=== PATIENT | female | born 1940 | race Caucasian/White ===

== ENCOUNTER 2017-10-05 06:09 | Inpatient (IN) | payer MEDICARE, BC ==
[~2017-10-05] VITALS: Ht 160 cm; Wt 99.0 kg
[~2017-10-05 06:09] MED LIST: ALEN70TA48 PO; ASPI81TA46 PO; ATOR20TA PO; CANA300T PO; CHOL10008 PO; GLIM1TAB46 PO; METF-436 PO; MULT-38 PO; PIOG15TA8 PO; VALS160T2 PO
[2017-10-05] MEDS ORDERED: normal saline 1000ML IV soln IVB ONE ×2 (06:35→08:35)
[2017-10-05] MEDS ORDERED: tranexamic acid inj. 100 MG in normal saline 100ml IV soln 99 ML IV ONE (06:55)
[2017-10-05 07:11] LABS: CLARITY,URINE SLIGHTLY CLOUDY (Clear); COLOR,URINE YELLOW (Yellow); GLUCOSE, URINE >=1000 mg/dl (Neg); KETONES,URINE NEGATIVE (Neg); LEUKOCYTE ESTERASE ,URINE SMALL (Neg); NITRITES, URINE NEGATIVE (Neg); OCCULT BLOOD,URINE NEGATIVE (Neg); PH,URINE 7.5 (4.8-8.0); PROTEIN,URINE 100 mg/dl (Neg)
[2017-10-05 07:12] LABS: UA COLLECTION TYPE NON-SPECIFIED
[2017-10-05 07:18] LABS: BACTERIA,URINE FEW /HPF (Neg); MUCUS STRANDS NONE SEEN /LPF (Neg); RBC,URINE NONE SEEN /HPF (0-2); RENAL CELLS, URINE FEW /HPF; SQUAMOUS EPITHELIAL CELL,UR MODERATE /LPF (FEW); WBC CLUMPS,URINE FEW /HPF (NEGATIVE); WBC,URINE 20-30 /HPF (0-4)
[2017-10-05 07:18] LABS: BASOPHILS % (AUTO) 0.6 % (0-1); EOSINOPHILS # (AUTO) 0.2 X10'3 (0-0.9); HEMATOCRIT 42.3 % (35.0-45.0); HEMOGLOBIN 13.9 g/dl (12.0-16.0); LYMPHOCYTES # (AUTO) 1.7 X10'3 (1.1-4.8); LYMPHOCYTES % (AUTO) 22.3 % (21-51); MEAN CORPUSCULAR HEMOGLOBIN 30.4 PG (27.0-31.0); MEAN CORPUSCULAR HGB CONC 32.9 % (33.0-36.5); MEAN CORPUSCULAR VOLUME 92.4 FL (78-98); MEAN PLATELET VOLUME 8.6 FL (7.4-10.4); MONOCYTES # (AUTO) 1.1 X10'3 (0-0.9); MONOCYTES % (AUTO) 14.5 % (2-12); NEUTROPHILS # (AUTO) 4.4 X10'3 (1.8-7.7); NEUTROPHILS % (AUTO) 59.6 % (42-75); PLATELET COUNT 237 X10'3 (140-440); RED BLOOD COUNT 4.58 X10'6 (4.20-5.60); RED CELL DISTRIBUTION WIDTH 14.3 % (11.5-14.5); WHITE BLOOD COUNT 7.4 X10'3 (4.5-11.0)
[2017-10-05 07:27] LABS: PROTHROMBIN TIME 10.1 SECONDS (9.0-12.0)
[2017-10-05 07:29] LABS: ALANINE AMINOTRANSFERASE 19 U/L (12-78); ALBUMIN 3.2 G/DL (3.4-5.0); ALBUMIN/GLOBULIN RATIO 0.7 (1.1-1.5); ALKALINE PHOSPHATASE 98 IU/L (46-116); ANION GAP 6 (8-16); ASPARTATE AMINO TRANSFERASE 16 U/L (10-37); BILIRUBIN,TOTAL 0.8 MG/DL (0.1-1.0); BLOOD UREA NITROGEN 38 MG/DL (7-18); BUN/CREATININE RATIO 34.9 (6.6-38.0); CALCIUM 9.4 MG/DL (8.5-10.1); CHLORIDE 99 MMOL/L (99-107); CREATININE 1.09 MG/DL (0.40-0.90); GLUCOSE 151 MG/DL (70-104); POTASSIUM 4.3 MMOL/L (3.5-5.1); SODIUM 134 MMOL/L (135-145); TOTAL CARBON DIOXIDE 29.5 MMOL/L (24-32); TOTAL PROTEIN 7.7 G/DL (6.4-8.2); eGFR 49 ML/MIN
[2017-10-05] MEDS ORDERED: CefTRIAXone 2gm/D5W 50ml 50 ML IV ONE (07:35)
[2017-10-05] MEDS ORDERED: acetaminophen 325mg tablet PO PRN ×2 (08:25)
[2017-10-05] MEDS ORDERED: dextrose ORAL solution 15 GM/59 ML bottle PO PRN ×2 (08:25)
[2017-10-05] MEDS ORDERED: potassium Cl 40MEQ/NS 500ml 500 ML IV PRN ×2 (08:25)
[2017-10-05] MEDS ORDERED: dextrose 50%-water 50ml dispensing syringe IV PRN ×2 (08:25)
[2017-10-05] MEDS ORDERED: magnesium 4gm in 100ml NS 100 ML IV PRN (08:25)
[2017-10-05] MEDS ORDERED: ondansetron/PF 4mg/2ml inj IV PRN (08:25)
[2017-10-05] MEDS ORDERED: magnesium 1gm/100ml D5W IVPB 100 ML IV PRN (08:25)
[2017-10-05] MEDS ORDERED: HYDROcodone/acetaminophen 5mg/325mg tablet PO PRN (08:25)
[2017-10-05] MEDS ORDERED: magnesium Cl slow-release 64mg tablet PO PRN (08:25)
[2017-10-05] MEDS ORDERED: MESSAGE TO PHARMACY PO ONE (08:25)
[2017-10-05] MEDS ORDERED: HYDROcodone/acetaminophen 10/325mg tab PO PRN (08:25)
[2017-10-05] MEDS ORDERED: potassium Cl 20 mEq SR tablet PO PRN ×2 (08:25)
[2017-10-05] MEDS ORDERED: insulin Lispro (HumaLOG) vial - multi-dose SQ SCH (08:25)
[2017-10-05] MEDS ORDERED: glucagon, human recombinant 1mg kit SUBCUT PRN (08:25)
[2017-10-05 08:50] LABS: HEMOGLOBIN A1C 7.1 % (4.5-6.2)
[2017-10-05] MEDS ORDERED: FURO-150 PO (08:52)
[2017-10-05] MEDS ORDERED: BISO1TAB7 PO (08:52)
[2017-10-05] MEDS ORDERED: FERR325T28 PO (08:52)
[2017-10-05] MEDS ORDERED: AMLO-356 PO (08:52)
[2017-10-05] MEDS ORDERED: heparin sodium, porcine/PF 100unit/ml 5ML syringe ONE (08:56)
[2017-10-05] MEDS: normal saline 1000ml 1,000 ML IV SCH ×2 (11:56→23:31)
[2017-10-05] MEDS: ciprofloxacin 250mg tablet PO SCH ×2 (12:11→21:13)
[2017-10-05 12:16] VITALS: BP 171/77
[2017-10-05] MEDS ORDERED: PEG 3350/Na sulf,bicarb,Cl/KCl oral sol 4 liter bottle PO ONE (13:55)
[2017-10-05 19:00] VITALS: BP_SYST 149; BP_SYST 171; BP_SYST 181; BP_DIAS 70; BP_DIAS 75; BP_DIAS 77
[2017-10-05] MEDS: docusate sod 100mg capsule PO SCH (20:00)
[2017-10-05] MEDS: insulin glargine (Lantus) pen - multi-dose SQ SCH (21:00)
[2017-10-06] VITALS (10 sets, daily range): BP systolic 121–199; BP diastolic 65–114
[2017-10-06 05:01] LABS: BASOPHILS % (AUTO) 0.3 % (0-1); EOSINOPHILS # (AUTO) 0.3 X10'3 (0-0.9); EOSINOPHILS % (AUTO) 3.6 % (0-6); HEMATOCRIT 37.4 % (35.0-45.0); HEMOGLOBIN 12.7 g/dl (12.0-16.0); LYMPHOCYTES # (AUTO) 1.3 X10'3 (1.1-4.8); MEAN CORPUSCULAR HEMOGLOBIN 31.4 PG (27.0-31.0); MEAN CORPUSCULAR VOLUME 92.4 FL (78-98); MEAN PLATELET VOLUME 8.6 FL (7.4-10.4); MONOCYTES # (AUTO) 0.9 X10'3 (0-0.9); MONOCYTES % (AUTO) 12.6 % (2-12); NEUTROPHILS # (AUTO) 4.7 X10'3 (1.8-7.7); NEUTROPHILS % (AUTO) 65.5 % (42-75); PLATELET COUNT 232 X10'3 (140-440); RED BLOOD COUNT 4.05 X10'6 (4.20-5.60); RED CELL DISTRIBUTION WIDTH 14.4 % (11.5-14.5); WHITE BLOOD COUNT 7.2 X10'3 (4.5-11.0)
[2017-10-06 05:20] LABS: ANION GAP 7 (8-16); BLOOD UREA NITROGEN 16 MG/DL (7-18); BUN/CREATININE RATIO 20.8 (6.6-38.0); CALCIUM 8.8 MG/DL (8.5-10.1); CHLORIDE 103 MMOL/L (99-107); CREATININE 0.77 MG/DL (0.40-0.90); GLUCOSE 107 MG/DL (70-104); POTASSIUM 3.8 MMOL/L (3.5-5.1); SODIUM 139 MMOL/L (135-145); TOTAL CARBON DIOXIDE 28.9 MMOL/L (24-32); eGFR 73 ML/MIN
[2017-10-06] MEDS: K and/or MAG REPLACEMENT MC SCH (08:00)
[2017-10-06] MEDS: docusate sod 100mg capsule PO SCH ×2 (08:47→20:38)
[2017-10-06] MEDS: ciprofloxacin 250mg tablet PO SCH ×2 (08:47→22:31)
[2017-10-06] MEDS ORDERED: MIDAZolam 5mg/5ml vial ONE (11:18)
[2017-10-06] MEDS ORDERED: fentaNYL/PF 50MCG/1 ML 2ML syringe ONE (11:18)
[2017-10-06] MEDS: normal saline 1000ml 1,000 ML IV SCH (16:59)
[2017-10-06] MEDS ORDERED: HYDROchlorothiazide 12.5mg capsule PO ONE (20:35)
[2017-10-06] MEDS ORDERED: atenolol 50mg tablet PO ONE (20:35)
[2017-10-06] MEDS: metFORMIN 500mg tablet PO SCH (20:40)
[2017-10-06] MEDS: atorvastatin 20mg tablet PO SCH (20:40)
[2017-10-06] MEDS: insulin glargine (Lantus) pen - multi-dose SQ SCH (21:00)
[2017-10-07] MEDS: normal saline 1000ml 1,000 ML IV SCH ×2 (01:42→05:51)
[2017-10-07 05:41] LABS: BASOPHILS % (AUTO) 0.5 % (0-1); EOSINOPHILS # (AUTO) 0.3 X10'3 (0-0.9); EOSINOPHILS % (AUTO) 5.3 % (0-6); HEMATOCRIT 38.5 % (35.0-45.0); HEMOGLOBIN 12.7 g/dl (12.0-16.0); LYMPHOCYTES # (AUTO) 1.3 X10'3 (1.1-4.8); LYMPHOCYTES % (AUTO) 20.2 % (21-51); MEAN CORPUSCULAR HEMOGLOBIN 30.5 PG (27.0-31.0); MEAN CORPUSCULAR HGB CONC 32.8 % (33.0-36.5); MEAN PLATELET VOLUME 8.8 FL (7.4-10.4); MONOCYTES # (AUTO) 0.8 X10'3 (0-0.9); NEUTROPHILS # (AUTO) 4.1 X10'3 (1.8-7.7); PLATELET COUNT 211 X10'3 (140-440); RED BLOOD COUNT 4.15 X10'6 (4.20-5.60); RED CELL DISTRIBUTION WIDTH 13.8 % (11.5-14.5); WHITE BLOOD COUNT 6.5 X10'3 (4.5-11.0)
[2017-10-07 05:50] LABS: ANION GAP 8 (8-16); BLOOD UREA NITROGEN 8 MG/DL (7-18); BUN/CREATININE RATIO 10.7 (6.6-38.0); CALCIUM 9.3 MG/DL (8.5-10.1); CHLORIDE 102 MMOL/L (99-107); CREATININE 0.75 MG/DL (0.40-0.90); GLUCOSE 104 MG/DL (70-104); MAGNESIUM 1.9 MG/DL (1.5-2.4); POTASSIUM 3.7 MMOL/L (3.5-5.1); SODIUM 138 MMOL/L (135-145); eGFR 75 ML/MIN
[2017-10-07] MEDS ORDERED: atenolol 50mg tablet PO SCH (06:41)
[2017-10-07] MEDS ORDERED: HYDROchlorothiazide 12.5mg capsule PO SCH (06:41)
[2017-10-07] MEDS: HYDROchlorothiazide 12.5mg capsule PO SCH (06:48)
[2017-10-07] MEDS: metFORMIN 500mg tablet PO SCH ×2 (06:49→19:47)
[2017-10-07] MEDS: docusate sod 100mg capsule PO SCH ×2 (06:49→19:47)
[2017-10-07] MEDS: atenolol 50mg tablet PO SCH (06:49)
[2017-10-07] MEDS: ciprofloxacin 250mg tablet PO SCH ×2 (06:50→22:15)
[2017-10-07] MEDS: multivitamins, therapeutics tablet PO SCH (06:51)
[2017-10-07] MEDS: K and/or MAG REPLACEMENT MC SCH (06:55)
[2017-10-07 06:57] VITALS: BP 180/83
[2017-10-07] MEDS ORDERED: glimepiride 1 MG tablet PO SCH (08:00)
[2017-10-07 08:30] VITALS: BP_SYST 180; BP_SYST 199; BP_DIAS 83; BP_DIAS 91
[2017-10-07 12:23] VITALS: BP 180/86
[2017-10-07] MEDS: lactobacillus rhamnosus 10,000 MMU CELLS/CAPSULE PO SCH (19:47)
[2017-10-07 20:00] VITALS: BP_SYST 145; BP_SYST 166; BP_SYST 170; BP_DIAS 73; BP_DIAS 80; BP_DIAS 85
[2017-10-07] MEDS: insulin glargine (Lantus) pen - multi-dose SQ SCH (22:00)
[2017-10-07] MEDS: atorvastatin 20mg tablet PO SCH (22:17)
[2017-10-08 00:33] VITALS: BP 129/48
[2017-10-08 05:09] LABS: ALBUMIN 2.8 G/DL (3.4-5.0); ANION GAP 5 (8-16); BLOOD UREA NITROGEN 14 MG/DL (7-18); BUN/CREATININE RATIO 17.7 (6.6-38.0); CALCIUM 9.2 MG/DL (8.5-10.1); CHLORIDE 101 MMOL/L (99-107); CREATININE 0.79 MG/DL (0.40-0.90); GLUCOSE 106 MG/DL (70-104); MAGNESIUM 1.7 MG/DL (1.5-2.4); POTASSIUM 3.7 MMOL/L (3.5-5.1); SODIUM 133 MMOL/L (135-145); TOTAL CARBON DIOXIDE 27.5 MMOL/L (24-32); eGFR 71 ML/MIN
[2017-10-08 07:00] VITALS: BP 143/73
[2017-10-08 08:16] LABS: BASOPHILS % (AUTO) 0.4 % (0-1); EOSINOPHILS # (AUTO) 0.2 X10'3 (0-0.9); EOSINOPHILS % (AUTO) 2.1 % (0-6); HEMATOCRIT 36.8 % (35.0-45.0); HEMOGLOBIN 12.4 g/dl (12.0-16.0); LYMPHOCYTES # (AUTO) 1.4 X10'3 (1.1-4.8); LYMPHOCYTES % (AUTO) 12.6 % (21-51); MEAN CORPUSCULAR HEMOGLOBIN 31.3 PG (27.0-31.0); MEAN CORPUSCULAR HGB CONC 33.7 % (33.0-36.5); MEAN CORPUSCULAR VOLUME 92.9 FL (78-98); MEAN PLATELET VOLUME 9.3 FL (7.4-10.4); MONOCYTES # (AUTO) 1.1 X10'3 (0-0.9); MONOCYTES % (AUTO) 9.8 % (2-12); NEUTROPHILS # (AUTO) 8.2 X10'3 (1.8-7.7); NEUTROPHILS % (AUTO) 75.1 % (42-75); PLATELET COUNT 228 X10'3 (140-440); RED BLOOD COUNT 3.96 X10'6 (4.20-5.60); RED CELL DISTRIBUTION WIDTH 14.6 % (11.5-14.5); WHITE BLOOD COUNT 10.9 X10'3 (4.5-11.0)
[2017-10-08] MEDS: docusate sod 100mg capsule PO SCH (10:11)
[2017-10-08] MEDS: multivitamins, therapeutics tablet PO SCH (10:12)
[2017-10-08] MEDS: lactobacillus rhamnosus 10,000 MMU CELLS/CAPSULE PO SCH (10:12)
[2017-10-08] MEDS: atenolol 50mg tablet PO SCH (10:12)
[2017-10-08] MEDS: ciprofloxacin 250mg tablet PO SCH (10:12)
[2017-10-08] MEDS: HYDROchlorothiazide 12.5mg capsule PO SCH (10:12)
[2017-10-08] MEDS: metFORMIN 500mg tablet PO SCH (10:12)
== END 2017-10-08 10:45 | disposition home or self-care (01) | DRG 378 ==
LOC: ER 06:10 → ED HOLD 07:53 → EDBEDREQ 09:13 → SUR 3N 11:39
PROVIDERS: ADMIT Internal Medicine; ATTEND Family Medicine
PROC: 0DJD8ZZ Inspection of Lower Intestinal Tract, Via Natural or Artificial Opening Endoscopic (ICD-10-PCS; principal; 2017-10-06)
DX: K57.31 Diverticulosis of large intestine without perforation or abscess with bleeding (principal); N39.0 Urinary tract infection, site not specified; N18.3 Chronic kidney disease, stage 3 (moderate); M19.90 Unspecified osteoarthritis, unspecified site; J45.909 Unspecified asthma, uncomplicated; E11.22 Type 2 diabetes mellitus with diabetic chronic kidney disease; I12.9 Hypertensive chronic kidney disease with stage 1 through stage 4 chronic kidney disease, or unspecified chronic kidney disease; Z90.710 Acquired absence of both cervix and uterus; Z88.0 Allergy status to penicillin; Z79.84 Long term (current) use of oral hypoglycemic drugs; Z79.82 Long term (current) use of aspirin; Z79.899 Other long term (current) drug therapy
CPT/HCPCS: 36415; 45378; 78278; 80048; 80053; 81001; 82948; 83036; 83735; 85025; 85610; 87070; 87088; 96365; 99285; A4620; A9560; G0500; J0696; J1642; J1815; J2250; J3010; J7030

== ENCOUNTER 2021-01-07 14:42 | Emergency (ER) | payer BC, MEDICARE ==
[~2021-01-07] VITALS: Ht 162.6 cm; Wt 97.7 kg
[~2021-01-07 14:42] MED LIST changes: -ALEN70TA48 PO; +ALEN70TA60 PO; +AMA1T PO; +ASPI81TA44 PO; -ASPI81TA46 PO; +BISO-2 PO; +FERR325T28 PO; +FURO-150 PO; -GLIM1TAB46 PO; +[UNRECOGNIZED DRUG - CODE] PO
[2021-01-07 15:43] LABS: BASOPHILS % (AUTO) 0.6 % (0-1); EOSINOPHILS # (AUTO) 0.1 X10'3 (0-0.9); EOSINOPHILS % (AUTO) 1.7 % (0-6); HEMATOCRIT 40.4 % (35.0-45.0); HEMOGLOBIN 13.5 g/dl (12.0-16.0); LYMPHOCYTES # (AUTO) 1.3 X10'3 (1.1-4.8); LYMPHOCYTES % (AUTO) 20.1 % (21-51); MEAN CORPUSCULAR HEMOGLOBIN 31.6 PG (27.0-31.0); MEAN CORPUSCULAR HGB CONC 33.3 g/dL (33.0-36.5); MEAN CORPUSCULAR VOLUME 94.9 FL (78-98); MEAN PLATELET VOLUME 8.7 FL (7.4-10.4); MONOCYTES # (AUTO) 0.8 X10'3 (0-0.9); MONOCYTES % (AUTO) 12.7 % (2-12); NEUTROPHILS # (AUTO) 4.2 X10'3 (1.8-7.7); NEUTROPHILS % (AUTO) 64.9 % (42-75); PLATELET COUNT 237 X10'3 (140-440); RED BLOOD COUNT 4.26 X10'6 (4.20-5.60); RED CELL DISTRIBUTION WIDTH 14.8 % (11.5-14.5); WHITE BLOOD COUNT 6.5 X10'3 (4.5-11.0)
[2021-01-07 16:02] LABS: GLUCOSE 100 MG/DL (70-104); POTASSIUM 4.7 MMOL/L (3.5-5.1); SODIUM 139 MMOL/L (135-145)
[2021-01-07 16:03] LABS: ALANINE AMINOTRANSFERASE 29 U/L (12-78); ALBUMIN 2.3 G/DL (3.4-5.0); ALBUMIN/GLOBULIN RATIO 0.6 (1.1-1.5); ALKALINE PHOSPHATASE 88 IU/L (46-116); ANION GAP 5 (8-16); ASPARTATE AMINO TRANSFERASE 17 U/L (10-37); BILIRUBIN,TOTAL 0.6 MG/DL (0.1-1.0); BLOOD UREA NITROGEN 29 MG/DL (7-18); BUN/CREATININE RATIO 34.1 (6.6-38.0); CALCIUM 8.1 MG/DL (8.5-10.1); CHLORIDE 104 MMOL/L (99-107); CREATININE 0.85 MG/DL (0.40-0.90); TOTAL CARBON DIOXIDE 29.8 MMOL/L (24-32); TOTAL PROTEIN 5.9 G/DL (6.4-8.2); eGFR 64 ML/MIN
[2021-01-08 00:34] LABS: HEMATOCRIT 41.4 % (35.0-45.0); HEMOGLOBIN 13.7 g/dl (12.0-16.0); MEAN CORPUSCULAR HEMOGLOBIN 31.5 PG (27.0-31.0); MEAN CORPUSCULAR HGB CONC 33.2 g/dL (33.0-36.5); MEAN CORPUSCULAR VOLUME 94.9 FL (78-98); MEAN PLATELET VOLUME 9.7 FL (7.4-10.4); PLATELET COUNT 245 X10'3 (140-440); RED BLOOD COUNT 4.36 X10'6 (4.20-5.60); RED CELL DISTRIBUTION WIDTH 14.4 % (11.5-14.5); WHITE BLOOD COUNT 8.7 X10'3 (4.5-11.0)
[2021-01-08 01:06] VITALS: BP 160/71
[2021-01-08 16:51] LABS: OCCULT BLOOD STOOL POSITIVE (Neg)
== END 2021-01-08 01:17 | disposition home or self-care (01) ==
LOC: ER 14:44
DX: K62.5 Hemorrhage of anus and rectum (principal); I10 Essential (primary) hypertension; E11.9 Type 2 diabetes mellitus without complications; Z88.0 Allergy status to penicillin; Z88.2 Allergy status to sulfonamides; Z79.899 Other long term (current) drug therapy
CPT/HCPCS: 36415; 74176; 80053; 82272; 85025; 85027; 99283; 99284

== ENCOUNTER 2021-03-08 17:00 | Inpatient (IN) | payer BC ==
[~2021-03-08] VITALS: Ht 162.6 cm; Wt 103.6 kg
[2021-03-08] MEDS ORDERED: normal saline 1000ML IV soln IV ONE (17:15)
[2021-03-08] MEDS ORDERED: dexamethasone sod phosphate 10mg/ml inj IV STA (17:23)
--- NOTE | 2021-03-08 17:56 | NUR ---
REPORTED BLOOD SUGAR TO PA. PA ASKED TO FEED PT JUICE CHEESE AND CRACKERS GIVEN
[2021-03-08 18:00] LABS: ALANINE AMINOTRANSFERASE 18 U/L (12-78); ALBUMIN 2.6 G/DL (3.4-5.0); ALBUMIN/GLOBULIN RATIO 0.6 (1.1-1.5); ALKALINE PHOSPHATASE 115 IU/L (46-116); ANION GAP 9 (8-16); ASPARTATE AMINO TRANSFERASE 24 U/L (10-37); BILIRUBIN,TOTAL 0.5 MG/DL (0.1-1.0); BLOOD UREA NITROGEN 46 MG/DL (7-18); BUN/CREATININE RATIO 41.1 (6.6-38.0); CALCIUM 8.5 MG/DL (8.5-10.1); CHLORIDE 103 MMOL/L (99-107); CREATININE 1.12 MG/DL (0.40-0.90); GLUCOSE 69 MG/DL (70-104); POTASSIUM 4.3 MMOL/L (3.5-5.1); SODIUM 139 MMOL/L (135-145); TOTAL CARBON DIOXIDE 27.3 MMOL/L (24-32); TOTAL PROTEIN 7.1 G/DL (6.4-8.2); eGFR 47 ML/MIN
[2021-03-08 18:02] LABS: EOSINOPHILS % (AUTO) 0.4 % (0-6); LYMPHOCYTES # (AUTO) 1.1 X10'3 (1.1-4.8); MONOCYTES # (AUTO) 1.2 X10'3 (0-0.9); WHITE BLOOD COUNT 8.4 X10'3 (4.5-11.0)
[2021-03-08 18:04] LABS: BASOPHILS % (AUTO) 0.4 % (0-1); LYMPHOCYTES % (AUTO) 13.5 % (21-51); MEAN PLATELET VOLUME 8.5 FL (7.4-10.4); MONOCYTES % (AUTO) 13.8 % (2-12); NEUTROPHILS # (AUTO) 6.1 X10'3 (1.8-7.7); NEUTROPHILS % (AUTO) 71.9 % (42-75); PLATELET COUNT 346 X10'3 (140-440)
[2021-03-08 18:17] LABS: CLARITY,URINE CLEAR (Clear); COLOR,URINE YELLOW (Yellow); GLUCOSE, URINE 500 mg/dl (Neg); KETONES,URINE NEGATIVE (Neg); LEUKOCYTE ESTERASE ,URINE NEGATIVE (Neg); NITRITES, URINE NEGATIVE (Neg); OCCULT BLOOD,URINE NEGATIVE (Neg); PROTEIN,URINE 100 mg/dl (Neg); UROBILINOGEN,URINE 0.2 E.U/dL (0.2-1.0)
[2021-03-08 18:18] LABS: UA COLLECTION TYPE STRAIGHT CATH
[2021-03-08 18:38] LABS: BACTERIA,URINE FEW /HPF (Neg); FINE GRANULAR CAST 0-3 /LPF (NEGATIVE); RBC,URINE 0-2 /HPF (0-2); SQUAMOUS EPITHELIAL CELL,UR FEW /LPF (FEW)
[2021-03-08 18:39] LABS: WBC,URINE 0-4 /HPF (0-4)
[2021-03-08 18:48] LABS: HEMATOCRIT 28.7 % (35.0-45.0); HEMOGLOBIN 9.2 g/dl (12.0-16.0); MEAN CORPUSCULAR HEMOGLOBIN 25.1 PG (27.0-31.0); MEAN CORPUSCULAR HGB CONC 32.1 g/dL (33.0-36.5); MEAN CORPUSCULAR VOLUME 78.2 FL (78-98); RED BLOOD COUNT 3.67 X10'6 (4.20-5.60); RED CELL DISTRIBUTION WIDTH 22.4 % (11.5-14.5)
[2021-03-08] MEDS ORDERED: furosemide 10 MG/1 ML 10ml inj IV ONE (18:55)
[2021-03-08] MEDS ORDERED: dextrose 5%-1/2 normal saline 1,000 ML IV ONE (19:25)
[2021-03-08] MEDS ORDERED: CefTRIAXone 2gm/D5W 50ml BAG 50 ML IV ONE (19:30)
[2021-03-08] MEDS ORDERED: vancomycin/NS 1 GM ADD-VANTAGE 250 ML IV ONE (19:30)
[2021-03-08 19:31] LABS: NUCLEATED RED BLOOD CELLS 3 /100WBC (0-0); TOTAL CELLS COUNTED 100
[2021-03-08 19:33] LABS: PLATELET ESTIMATE NORMAL
[2021-03-08 19:34] LABS: ANISOCYTOSIS 3+
[2021-03-08] MEDS ORDERED: DOXY-224 PO (19:36)
[2021-03-08] MEDS ORDERED: ATOR40TA72 PO (19:36)
[2021-03-08] MEDS ORDERED: SILV25CR21 TP (19:36)
[2021-03-08] MEDS ORDERED: METF-1203 PO (19:36)
[2021-03-08] MEDS ORDERED: LOSA100T57 PO (19:36)
[2021-03-08] MEDS ORDERED: TRIA454O TOP (19:36)
[2021-03-08] MEDS ORDERED: AMLO-708 PO (19:36)
[2021-03-08] MEDS ORDERED: METO-395 PO (19:36)
[2021-03-08] MEDS ORDERED: GLIM2TAB6 PO (19:36)
[2021-03-08] MEDS ORDERED: EMPA10TA PO (19:36)
[2021-03-08 19:37] LABS: BURR CELLS FEW; POLYCHROMASIA FEW
[2021-03-08 19:38] LABS: HYPOCHROMASIA 1+; SCHISTOCYTES FEW
--- NOTE | 2021-03-08 19:57 | NUR ---
benjamin vázquez sister [phone] if anything is needed for fransico
[2021-03-08] MEDS ORDERED: acetaminophen 325mg tablet PO PRN ×2 (20:20)
[2021-03-08] MEDS ORDERED: mag hydrox/Alum hydrox/simeth 30ml oral suspension PO PRN (20:20)
[2021-03-08] MEDS ORDERED: morphine 2 MG/ML inj. syringe IV PRN ×2 (20:20)
[2021-03-08] MEDS ORDERED: ondansetron 4mg rapidly disintigrating tab PO PRN (20:20)
[2021-03-08] MEDS ORDERED: acetaminophen 650mg rectal suppository RC PRN (20:20)
[2021-03-08] MEDS ORDERED: diphenhydrAMINE 50 mg/ml inj IV PRN (20:20)
[2021-03-08] MEDS ORDERED: bisacodyl 10mg suppository rectal RC PRN (20:20)
[2021-03-08] MEDS ORDERED: magnesium hydroxide 30ml (MOM) UD suspension PO PRN (20:20)
[2021-03-08] MEDS ORDERED: diphenhydrAMINE 25mg capsule PO PRN (20:20)
[2021-03-08] MEDS ORDERED: ondansetron/PF 4mg/2ml inj IV PRN (20:20)
[2021-03-08] MEDS ORDERED: MESSAGE TO PHARMACY PO ONE (20:25)
[2021-03-08] MEDS ORDERED: glucagon, human recombinant 1mg kit SUBCUT PRN (20:25)
[2021-03-08] MEDS ORDERED: dextrose ORAL solution 15 GM/59 ML bottle PO PRN ×2 (20:25)
[2021-03-08] MEDS ORDERED: dextrose 50%-water 50ml dispensing syringe IV PRN ×2 (20:25)
[2021-03-08 20:52] LABS: HEMOGLOBIN A1C 7.5 % (4.5-6.2)
[2021-03-08 20:54] LABS: CREATINE KINASE 33 U/L (26-192); LIPASE 135 U/L (73-393); MAGNESIUM 1.9 MG/DL (1.5-2.4); PHOSPHORUS 4.8 MG/DL (2.3-4.5)
[2021-03-08] MEDS ORDERED: temazepam 15mg capsule PO PRN (21:00)
[2021-03-08 21:56] LABS: APTT 30 SECONDS (22-32); D-DIMER 1.59 MG/L FEU (0-0.50)
[2021-03-09] VITALS (8 sets, daily range): BP systolic 96–145; BP diastolic 41–74
--- NOTE | 2021-03-09 00:03 | NUR ---
pt pulled off NC and desat to 77% on room air. placed NC back on and pt took too much time to recover so placed on NRB at 10L and spo2 99%. attempted to trial pt by removing NRB and keeping NC @ 6L and pt maintained spo2 for 3 minuties but became visuably dispneic. called dr davila and recieved orders for abg and rt eval and treat.
--- NOTE | 2021-03-09 00:09 | NUR ---
rt at beside. pt attempting to remove NRB. redirected to keep in place.
[2021-03-09 00:27] LABS: ABG BASE EXCESS -1.1 mmol/L (-2.0-2.0); ABG HCO3 29.3 mmol/L (22.0-26.0); ABG OXYGEN SATURATION 99.2 % (94-97); ABG PCO2 (T) 88.4 mmHg (32.0-45.0); ABG PO2 (T) 206.6 mmHg (75.0-100.0); ALLEN'S TEST POSITIVE; FCOHb 1.4 % (0.0-3.9); FMetHb 0.3 % (0.0-1.5); FO2Hb 97.5 % (94-97); PATIENT TEMPERATURE 36.7; TOTAL HEMOGLOBIN 9.7 G/dl (12.0-16.0)
[2021-03-09 03:10] LABS: ABG BASE EXCESS -3.9 mmol/L (-2.0-2.0); ABG HCO3 24.2 mmol/L (22.0-26.0); ABG PO2 (T) 69.2 mmHg (75.0-100.0); ALLEN'S TEST POSITIVE; FCOHb 1.6 % (0.0-3.9); FMetHb 0.3 % (0.0-1.5); FO2Hb 90.3 % (94-97); PATIENT TEMPERATURE 36.7; RESPIRATORY RATE 18 b/min; TOTAL HEMOGLOBIN 9.4 G/dl (12.0-16.0)
[2021-03-09 06:57] LABS: BASOPHILS % (AUTO) 0.2 % (0-1); EOSINOPHILS % (AUTO) 0 % (0-6); HEMOGLOBIN 8.5 g/dl (12.0-16.0); LYMPHOCYTES # (AUTO) 0.4 X10'3 (1.1-4.8); LYMPHOCYTES % (AUTO) 5.2 % (21-51); MEAN CORPUSCULAR HGB CONC 28.9 g/dL (33.0-36.5); MEAN PLATELET VOLUME 8.3 FL (7.4-10.4); MONOCYTES # (AUTO) 0.5 X10'3 (0-0.9); MONOCYTES % (AUTO) 5.8 % (2-12); NEUTROPHILS # (AUTO) 7.2 X10'3 (1.8-7.7); NEUTROPHILS % (AUTO) 88.8 % (42-75); PLATELET COUNT 368 X10'3 (140-440); RED BLOOD COUNT 3.56 X10'6 (4.20-5.60); RED CELL DISTRIBUTION WIDTH 22.6 % (11.5-14.5); WHITE BLOOD COUNT 8.1 X10'3 (4.5-11.0)
[2021-03-09 07:14] LABS: ALANINE AMINOTRANSFERASE 16 U/L (12-78); ALBUMIN 2.5 G/DL (3.4-5.0); ALBUMIN/GLOBULIN RATIO 0.6 (1.1-1.5); ALKALINE PHOSPHATASE 115 IU/L (46-116); ANION GAP 7 (8-16); ASPARTATE AMINO TRANSFERASE 24 U/L (10-37); BILIRUBIN,TOTAL 0.4 MG/DL (0.1-1.0); BLOOD UREA NITROGEN 47 MG/DL (7-18); BUN/CREATININE RATIO 40.5 (6.6-38.0); CALCIUM 8.3 MG/DL (8.5-10.1); CHLORIDE 103 MMOL/L (99-107); CREATININE 1.16 MG/DL (0.40-0.90); SODIUM 139 MMOL/L (135-145); TOTAL CARBON DIOXIDE 29.3 MMOL/L (24-32); TOTAL PROTEIN 6.7 G/DL (6.4-8.2); eGFR 45 ML/MIN
[2021-03-09 07:17] LABS: CHOL/HDL RATIO 1.7 (0.00-4.99); CHOLESTEROL 72 MG/DL (0-200); HDL CHOLESTEROL 42 MG/DL (35-60); LDL CHOLESTEROL 24 MG/DL (50-100); TRIGLYCERIDES 47 MG/DL (20-135)
[2021-03-09 07:26] LABS: GLUCOSE 277 MG/DL (70-104)
--- NOTE | 2021-03-09 07:26 | NUR ---
Diabetes consult: Noted A1C 7.5, fair control and appropriate for age, DM ed not indicated at this time. Will continue to monitor. Addendum: 03/09/21 at [address] Amended: Links added.
[2021-03-09 07:44] LABS: MEAN CORPUSCULAR HEMOGLOBIN 24.9 PG (27.0-31.0); MEAN CORPUSCULAR VOLUME 78.6 FL (78-98)
[2021-03-09] MEDS ORDERED: heparin, porcine 5000 units/ml vial SQ SCH (08:00)
[2021-03-09] MEDS: furosemide 20 MG/2 ML vial IV SCH ×3 (08:00→19:53)
[2021-03-09] MEDS: metoprolol succinate 25mg (24-HOUR) SR. Tablet PO SCH ×2 (08:00→08:54)
[2021-03-09] MEDS: losartan 50mg tablet PO SCH ×2 (08:00→08:58)
[2021-03-09] MEDS: amLODIPine 5mg tablet PO SCH ×2 (08:00→08:57)
[2021-03-09] MEDS: silver sulfadiazine cream 50gm TP SCH (08:00)
[2021-03-09] MEDS ORDERED: magnesium Cl slow-release 64mg tablet PO PRN (08:50)
[2021-03-09] MEDS ORDERED: magnesium 4gm in 100ml NS 100 ML IV PRN (08:50)
[2021-03-09] MEDS ORDERED: potassium Cl 40MEQ/1/2NS 520ml 520 ML IV PRN (08:50)
[2021-03-09] MEDS ORDERED: potassium Cl 20 mEq SR tablet PO PRN ×2 (08:50)
[2021-03-09] MEDS ORDERED: methylPREDNISolone sod succ 125mg/2ml vial IV ONE (08:55)
[2021-03-09] MEDS ORDERED: ipratropium/albuterol 3ml nebule NEB PRN (08:55)
[2021-03-09] MEDS: pantoprazole 40mg Tablet.DR PO SCH (08:58)
[2021-03-09] MEDS: atorvastatin 20mg tablet PO SCH (08:58)
[2021-03-09] MEDS: docusate sod 100mg capsule PO SCH ×2 (08:58→19:53)
[2021-03-09] MEDS: aspirin 81mg, enteric-coated 1 TAB TABLET.DR PO SCH (08:58)
[2021-03-09] MEDS: insulin Lispro (HumaLOG) vial - multi-dose SQ SCH ×2 (09:30→22:01)
[2021-03-09] MEDS: CefTRIAXone/D5W-Rocephin 1gm 50 ML IV SCH (10:13)
[2021-03-09] MEDS: azithromycin/NS 500mg/250ml 250 ML IV SCH (10:13)
[2021-03-09] MEDS: vancomycin/NS 1 GM ADD-VANTAGE 250 ML X 1 DOSE IV SCH (10:13)
[2021-03-09 10:32] LABS: ABG BASE EXCESS -0.7 mmol/L (-2.0-2.0); ABG HCO3 27.1 mmol/L (22.0-26.0); ABG OXYGEN SATURATION 93.8 % (94-97); ABG PCO2 (T) 63.4 mmHg (32.0-45.0); ALLEN'S TEST POSITIVE; FCOHb 1.1 % (0.0-3.9); FLOW 15 L/min; FO2Hb 92.8 % (94-97); TOTAL HEMOGLOBIN 8.6 G/dl (12.0-16.0)
--- NOTE | 2021-03-09 10:50 | NUR ---
Communicated with physician bedside. States okay to hold all blood pressure meds due to decreased blood pressure.
[2021-03-09] MEDS: ipratropium/albuterol 3ml nebule NEB SCH ×4 (11:12→23:30)
[2021-03-09] MEDS: methylPREDNISolone sod succ 125mg/2ml vial IV SCH ×2 (14:10→19:55)
[2021-03-09] MEDS ORDERED: iohexol 350MG/ML 100ml bottle IV ONE (14:38)
[2021-03-09] MEDS ORDERED: heparin 10,000 units/1 ML INJ IV ONE (15:30)
[2021-03-09] MEDS ORDERED: heparin 10,000 units/1 ML INJ IV PRN (15:30)
[2021-03-09 16:31] LABS: BASOPHILS % (AUTO) 0 % (0-1); EOSINOPHILS % (AUTO) 0 % (0-6); HEMATOCRIT 26.3 % (35.0-45.0); HEMOGLOBIN 7.8 g/dl (12.0-16.0); LYMPHOCYTES # (AUTO) 0.4 X10'3 (1.1-4.8); LYMPHOCYTES % (AUTO) 7.1 % (21-51); MEAN CORPUSCULAR HEMOGLOBIN 23.8 PG (27.0-31.0); MEAN CORPUSCULAR HGB CONC 29.6 g/dL (33.0-36.5); MEAN CORPUSCULAR VOLUME 80.5 FL (78-98); MEAN PLATELET VOLUME 7.8 FL (7.4-10.4); MONOCYTES # (AUTO) 0.1 X10'3 (0-0.9); MONOCYTES % (AUTO) 2.2 % (2-12); NEUTROPHILS # (AUTO) 5.5 X10'3 (1.8-7.7); NEUTROPHILS % (AUTO) 90.7 % (42-75); PLATELET COUNT 319 X10'3 (140-440); RED BLOOD COUNT 3.27 X10'6 (4.20-5.60); RED CELL DISTRIBUTION WIDTH 22.3 % (11.5-14.5); WHITE BLOOD COUNT 6.1 X10'3 (4.5-11.0)
[2021-03-09 17:06] LABS: ABG HCO3 28.9 mmol/L (22.0-26.0); ABG OXYGEN SATURATION 92.6 % (94-97); ABG PCO2 (T) 51.9 mmHg (32.0-45.0); ALLEN'S TEST POSITIVE; FMetHb 0.1 % (0.0-1.5); FO2Hb 91.6 % (94-97); RESPIRATORY RATE 18 b/min; TOTAL HEMOGLOBIN 8.4 G/dl (12.0-16.0)
--- NOTE | 2021-03-09 17:23 | NUR ---
Page to Dr. Mendoza Message: [id number] Salazar Escobar H&H zi. Okay to start heparin drip? Dania [phone] Addendum: 03/09/21 at 1732 by Dania Taylor RN Dr. Mendoza called back and states to continue with heparin drip. Get stool occult and check H&H Q6 x4
[2021-03-09] MEDS: heparin 25,000 UNIT/250ml bag 250 ML IV SCH (17:36)
--- NOTE | 2021-03-09 18:00 | NUR ---
Problems reprioritized. Patient report given, questions answered & plan of care reviewed with Annetta DONOHUE.
[2021-03-09 18:25] LABS: ANISOCYTOSIS 3+; ELLIPTOCYTES 1+; LARGE PLATELETS FEW; PLATELET ESTIMATE NORMAL; TOTAL CELLS COUNTED 100
[2021-03-09 18:26] LABS: HYPOCHROMASIA 2+; POLYCHROMASIA 1+
[2021-03-09] MEDS: lactobacillus rhamnosus 10,000 MMU CELLS/CAPSULE PO SCH (19:53)
[2021-03-09] MEDS: K and/or MAG REPLACEMENT MC SCH (19:58)
[2021-03-09 23:48] LABS: HEMOGLOBIN 7.3 g/dl (12.0-16.0); MEAN CORPUSCULAR HEMOGLOBIN 24.3 PG (27.0-31.0); MEAN CORPUSCULAR HGB CONC 30.2 g/dL (33.0-36.5); MEAN CORPUSCULAR VOLUME 80.3 FL (78-98); MEAN PLATELET VOLUME 8.4 FL (7.4-10.4); PLATELET COUNT 264 X10'3 (140-440); RED BLOOD COUNT 2.99 X10'6 (4.20-5.60); RED CELL DISTRIBUTION WIDTH 22.4 % (11.5-14.5); WHITE BLOOD COUNT 7.2 X10'3 (4.5-11.0)
--- NOTE | 2021-03-10 00:30 | NUR ---
held heparin per protocol PTT >139 DR. Walls notified
[2021-03-10 02:00] VITALS: BP 136/60
[2021-03-10] MEDS: methylPREDNISolone sod succ 125mg/2ml vial IV SCH ×4 (02:17→19:49)
[2021-03-10] MEDS: ipratropium/albuterol 3ml nebule NEB SCH ×5 (02:49→19:23)
[2021-03-10 06:00] VITALS: BP 139/68
[2021-03-10 06:35] LABS: BASOPHILS % (AUTO) 0.1 % (0-1); EOSINOPHILS % (AUTO) 0 % (0-6); HEMATOCRIT 25.7 % (35.0-45.0); HEMOGLOBIN 7.6 g/dl (12.0-16.0); LYMPHOCYTES # (AUTO) 0.3 X10'3 (1.1-4.8); LYMPHOCYTES % (AUTO) 4.7 % (21-51); MEAN CORPUSCULAR HEMOGLOBIN 23.8 PG (27.0-31.0); MEAN CORPUSCULAR HGB CONC 29.6 g/dL (33.0-36.5); MEAN CORPUSCULAR VOLUME 80.5 FL (78-98); MEAN PLATELET VOLUME 8.6 FL (7.4-10.4); MONOCYTES # (AUTO) 0.4 X10'3 (0-0.9); MONOCYTES % (AUTO) 5.5 % (2-12); NEUTROPHILS # (AUTO) 6.3 X10'3 (1.8-7.7); NEUTROPHILS % (AUTO) 89.7 % (42-75); PLATELET COUNT 273 X10'3 (140-440); RED BLOOD COUNT 3.19 X10'6 (4.20-5.60); RED CELL DISTRIBUTION WIDTH 22.4 % (11.5-14.5)
[2021-03-10 06:51] LABS: ALANINE AMINOTRANSFERASE 17 U/L (12-78); ALBUMIN 2.3 G/DL (3.4-5.0); ALBUMIN/GLOBULIN RATIO 0.6 (1.1-1.5); ALKALINE PHOSPHATASE 85 IU/L (46-116); ANION GAP 6 (8-16); ASPARTATE AMINO TRANSFERASE 16 U/L (10-37); BILIRUBIN,TOTAL 0.3 MG/DL (0.1-1.0); BLOOD UREA NITROGEN 40 MG/DL (7-18); BUN/CREATININE RATIO 35.4 (6.6-38.0); CALCIUM 7.7 MG/DL (8.5-10.1); CHLORIDE 107 MMOL/L (99-107); CREATININE 1.13 MG/DL (0.40-0.90); GLUCOSE 240 MG/DL (70-104); POTASSIUM 4.4 MMOL/L (3.5-5.1); SODIUM 143 MMOL/L (135-145); TOTAL CARBON DIOXIDE 29.9 MMOL/L (24-32); TOTAL PROTEIN 6.4 G/DL (6.4-8.2); eGFR 46 ML/MIN
[2021-03-10] MEDS: K and/or MAG REPLACEMENT MC SCH ×2 (08:00→19:50)
[2021-03-10] MEDS: losartan 50mg tablet PO SCH ×2 (08:00→09:21)
--- NOTE | 2021-03-10 08:47 | NUR ---
DM consult: Patient's A1c has already been addressed, see below. Diabetes consult: Noted A1C 7.5, fair control and appropriate for age, DM ed not indicated at this time. Will continue to monitor. Addendum: 03/10/21 at [address] Amended: Links added.
[2021-03-10] MEDS: furosemide 20 MG/2 ML vial IV SCH ×2 (09:04→19:49)
[2021-03-10] MEDS: lactobacillus rhamnosus 10,000 MMU CELLS/CAPSULE PO SCH ×2 (09:05→19:49)
[2021-03-10] MEDS: aspirin 81mg, enteric-coated 1 TAB TABLET.DR PO SCH (09:05)
[2021-03-10] MEDS: docusate sod 100mg capsule PO SCH ×2 (09:05→19:49)
[2021-03-10] MEDS: pantoprazole 40mg Tablet.DR PO SCH (09:07)
[2021-03-10] MEDS: atorvastatin 20mg tablet PO SCH (09:08)
[2021-03-10] MEDS: vancomycin/NS 1 GM ADD-VANTAGE 250 ML X 1 DOSE IV SCH (09:20)
[2021-03-10] MEDS: CefTRIAXone/D5W-Rocephin 1gm 50 ML IV SCH (09:26)
[2021-03-10] MEDS: azithromycin/NS 500mg/250ml 250 ML IV SCH (09:26)
[2021-03-10] MEDS: metoprolol succinate 25mg (24-HOUR) SR. Tablet PO SCH (09:40)
[2021-03-10] MEDS: amLODIPine 5mg tablet PO SCH (09:40)
[2021-03-10] MEDS: insulin Lispro (HumaLOG) vial - multi-dose SQ SCH ×2 (09:47→21:32)
--- NOTE | 2021-03-10 10:00 | NUR ---
Page to dr. mccarty. [id number] Luz- Requests to be off be off bipap for the day. PTT 105. will continue following heparin protocol. Dania [phone]
[2021-03-10 11:00] VITALS: BP 156/80
[2021-03-10] MEDS: silver sulfadiazine cream 50gm TP SCH (11:20)
[2021-03-10] MEDS: heparin 25,000 UNIT/250ml bag 250 ML IV SCH ×2 (12:11→17:50)
[2021-03-10 12:38] LABS: ABG BASE EXCESS 5.6 mmol/L (-2.0-2.0); ABG HCO3 32.4 mmol/L (22.0-26.0); ABG OXYGEN SATURATION 97.2 % (94-97); ABG PCO2 (T) 62.2 mmHg (32.0-45.0); ABG PO2 (T) 96.9 mmHg (75.0-100.0); ALLEN'S TEST POSITIVE; FMetHb 0.3 % (0.0-1.5); FO2Hb 95.9 % (94-97); TOTAL HEMOGLOBIN 8.4 G/dl (12.0-16.0)
--- NOTE | 2021-03-10 13:07 | NUR ---
Page to Dr. Mendoza 9144 Luz Ariella- [facility] CO2 62.2. Want pt NPO? Dania [phone] Addendum: 03/10/21 at 1350 by Dania Taylor RN Dr. Mendoza called back stating to keep pt NPO so patient can be on continuous bipap and repeat ABG in 6 hours.
--- NOTE | 2021-03-10 13:50 | NUR ---
Dr. Mendoza states to hold off on physical therapy while patient is on bipap
[2021-03-10 14:51] LABS: HEMATOCRIT 25.3 % (35.0-45.0); HEMOGLOBIN 7.6 g/dl (12.0-16.0); MEAN CORPUSCULAR HGB CONC 29.9 g/dL (33.0-36.5); MEAN CORPUSCULAR VOLUME 80.3 FL (78-98); MEAN PLATELET VOLUME 8.5 FL (7.4-10.4); PLATELET COUNT 290 X10'3 (140-440); RED BLOOD COUNT 3.15 X10'6 (4.20-5.60); RED CELL DISTRIBUTION WIDTH 22.5 % (11.5-14.5); WHITE BLOOD COUNT 8.2 X10'3 (4.5-11.0)
[2021-03-10 15:00] VITALS: BP 134/49
[2021-03-10 16:06] LABS: ANISOCYTOSIS 3+; HYPOCHROMASIA 1+; PLATELET ESTIMATE NORMAL
[2021-03-10 16:07] LABS: ELLIPTOCYTES 1+
[2021-03-10 18:00] VITALS: BP 128/44
--- NOTE | 2021-03-10 18:00 | NUR ---
Problems reprioritized. Patient report given, questions answered & plan of care reviewed with Annetta DONOHUE.
[2021-03-10 19:39] LABS: ABG BASE EXCESS 8.1 mmol/L (-2.0-2.0); ABG HCO3 34.2 mmol/L (22.0-26.0); ABG OXYGEN SATURATION 92.5 % (94-97); ABG PCO2 (T) 56.1 mmHg (32.0-45.0); ABG PO2 (T) 68.9 mmHg (75.0-100.0); ALLEN'S TEST POSITIVE; FCOHb 1.1 % (0.0-3.9); FMetHb 0.3 % (0.0-1.5); FO2Hb 91.2 % (94-97); PATIENT TEMPERATURE 36.3; RESPIRATORY RATE 10 b/min; TOTAL HEMOGLOBIN 8.8 G/dl (12.0-16.0)
[2021-03-10] MEDS: nystatin 15 GM powder TP SCH (21:32)
[2021-03-10 22:00] VITALS: BP 129/51
[2021-03-11] MEDS: ipratropium/albuterol 3ml nebule NEB SCH ×7 (00:16→23:23)
[2021-03-11 00:31] LABS: OCCULT BLOOD STOOL NEGATIVE (Neg)
[2021-03-11 02:00] VITALS: BP 136/52
[2021-03-11] MEDS: methylPREDNISolone sod succ 125mg/2ml vial IV SCH ×3 (02:19→20:29)
[2021-03-11 06:00] VITALS: BP 120/69
[2021-03-11 06:02] LABS: BASOPHILS % (AUTO) 0 % (0-1); EOSINOPHILS % (AUTO) 0 % (0-6); LYMPHOCYTES # (AUTO) 0.3 X10'3 (1.1-4.8); LYMPHOCYTES % (AUTO) 1.8 % (21-51); MEAN PLATELET VOLUME 8.2 FL (7.4-10.4); MONOCYTES # (AUTO) 0.3 X10'3 (0-0.9); NEUTROPHILS # (AUTO) 16.8 X10'3 (1.8-7.7); NEUTROPHILS % (AUTO) 96.2 % (42-75); PLATELET COUNT 281 X10'3 (140-440); WHITE BLOOD COUNT 17.5 X10'3 (4.5-11.0)
[2021-03-11 06:22] LABS: APTT 80 SECONDS (22-32)
[2021-03-11 06:28] LABS: ALANINE AMINOTRANSFERASE 12 U/L (12-78); ALBUMIN 2.5 G/DL (3.4-5.0); ALBUMIN/GLOBULIN RATIO 0.6 (1.1-1.5); ALKALINE PHOSPHATASE 81 IU/L (46-116); ANION GAP 5 (8-16); ASPARTATE AMINO TRANSFERASE 14 U/L (10-37); BILIRUBIN,TOTAL 0.5 MG/DL (0.1-1.0); BLOOD UREA NITROGEN 41 MG/DL (7-18); BUN/CREATININE RATIO 42.3 (6.6-38.0); CHLORIDE 106 MMOL/L (99-107); CREATININE 0.97 MG/DL (0.40-0.90); FERRITIN 19 NG/ML (8-252); GLUCOSE 223 MG/DL (70-104); MAGNESIUM 2.2 MG/DL (1.5-2.4); PHOSPHORUS 4.3 MG/DL (2.3-4.5); POTASSIUM 4.4 MMOL/L (3.5-5.1); SODIUM 143 MMOL/L (135-145); TOTAL CARBON DIOXIDE 31.7 MMOL/L (24-32); TOTAL PROTEIN 6.7 G/DL (6.4-8.2); eGFR 55 ML/MIN
[2021-03-11 06:41] LABS: HEMATOCRIT 28.3 % (35.0-45.0); HEMOGLOBIN 8.5 g/dl (12.0-16.0); MEAN CORPUSCULAR HEMOGLOBIN 24.3 PG (27.0-31.0); RED BLOOD COUNT 3.49 X10'6 (4.20-5.60); RED CELL DISTRIBUTION WIDTH 22.4 % (11.5-14.5)
[2021-03-11 06:58] LABS: PLATELET ESTIMATE NORMAL
[2021-03-11 06:59] LABS: ANISOCYTOSIS 3+; HYPOCHROMASIA 1+; MICROCYTOSIS 1+; POIKILOCYTOSIS 1+; POLYCHROMASIA 1+; TARGET CELLS FEW; TEAR DROP CELLS FEW
--- NOTE | 2021-03-11 07:38 | NUR ---
0735 RT AT PATIENTS BEDSIDE. RT REMOVED PATIENT FROM BIPAP AND PLACED ON 6L NC. PATIENT SPO2 IS 93% ON 6L. PATIENT IS SHOWING NO SIGNS OF SOB/DISTRESS AND MENTATION IS APPROPRIATED. LAST ABG IS NORMAL. RT WILL RETURN FOR NEXT Q4 SVN TX. Addendum: 03/11/21 at 0740 by Indigo Vidales RT Amended: Links added.
[2021-03-11] MEDS: K and/or MAG REPLACEMENT MC SCH ×2 (08:00→20:31)
[2021-03-11] MEDS: furosemide 20 MG/2 ML vial IV SCH ×2 (08:05→20:21)
[2021-03-11] MEDS: lactobacillus rhamnosus 10,000 MMU CELLS/CAPSULE PO SCH ×2 (08:11→20:29)
[2021-03-11] MEDS: silver sulfadiazine cream 50gm TP SCH (08:11)
[2021-03-11] MEDS: nystatin 15 GM powder TP SCH ×3 (08:11→20:35)
[2021-03-11] MEDS: metoprolol succinate 25mg (24-HOUR) SR. Tablet PO SCH (08:12)
[2021-03-11] MEDS: aspirin 81mg, enteric-coated 1 TAB TABLET.DR PO SCH (08:12)
[2021-03-11] MEDS: losartan 50mg tablet PO SCH (08:12)
[2021-03-11] MEDS: pantoprazole 40mg Tablet.DR PO SCH (08:12)
[2021-03-11] MEDS: amLODIPine 5mg tablet PO SCH (08:12)
[2021-03-11] MEDS: docusate sod 100mg capsule PO SCH ×2 (08:13→20:31)
[2021-03-11] MEDS: atorvastatin 20mg tablet PO SCH (08:13)
[2021-03-11 08:42] LABS: % IRON SATURATION 3 % (11-46); IRON 8 UG/DL (49-151); TOTAL IRON BINDING CAPACITY 315 UG/DL (259-388)
[2021-03-11] MEDS: azithromycin/NS 500mg/250ml 250 ML IV SCH (09:01)
[2021-03-11] MEDS: CefTRIAXone/D5W-Rocephin 1gm 50 ML IV SCH (09:01)
[2021-03-11] MEDS: vancomycin/NS 1 GM ADD-VANTAGE 250 ML X 1 DOSE IV SCH (09:01)
[2021-03-11] MEDS: insulin Lispro (HumaLOG) vial - multi-dose SQ SCH ×3 (10:30→20:43)
[2021-03-11 11:00] VITALS: BP 113/50
--- NOTE | 2021-03-11 13:10 | NUR ---
Patient's nasal canula was out of her nose and oxygen saturation was 78%. Once NC was placed saturation improved, but patient was complaining of chest discomfort.
--- NOTE | 2021-03-11 13:12 | NUR ---
Page to Dr. Mendoza Message: [phone] Ariella jama- C/O chest pain. Dania [phone]
--- NOTE | 2021-03-11 13:20 | NUR ---
Patient states chest discomfort went away. Will continue to monitor
[2021-03-11] MEDS: heparin 25,000 UNIT/250ml bag 250 ML IV SCH (13:24)
[2021-03-11 15:00] VITALS: BP 123/53
[2021-03-11] MEDS ORDERED: sodium ferric gluc complex inj 125 MG in normal saline 100ml IV soln 90 ML IV SCH (17:00)
[2021-03-11] MEDS: sodium ferric gluc complex inj 125 MG in normal saline 100ml IV soln 100 ML IV SCH (17:17)
[2021-03-11] MEDS: polyethylene glycol 3350 17gm powd pack PO SCH ×2 (17:27→20:35)
[2021-03-11 18:00] VITALS: BP 124/49
--- NOTE | 2021-03-11 18:15 | NUR ---
Problems reprioritized. Patient report given, questions answered & plan of care reviewed with Annetta DONOHUE.
[2021-03-11 22:00] VITALS: BP 90/58
[2021-03-12 02:00] VITALS: BP 142/49
[2021-03-12] MEDS: ipratropium/albuterol 3ml nebule NEB SCH ×6 (02:51→23:44)
[2021-03-12 06:00] VITALS: BP 148/63
[2021-03-12] MEDS: sodium ferric gluc complex inj 125 MG in normal saline 100ml IV soln 100 ML IV SCH (08:00)
[2021-03-12] MEDS: silver sulfadiazine cream 50gm TP SCH (08:00)
[2021-03-12] MEDS: K and/or MAG REPLACEMENT MC SCH ×2 (08:00→19:40)
[2021-03-12] MEDS: pantoprazole 40mg Tablet.DR PO SCH (08:04)
[2021-03-12] MEDS: methylPREDNISolone sod succ 125mg/2ml vial IV SCH ×2 (08:05→19:30)
[2021-03-12] MEDS: CefTRIAXone/D5W-Rocephin 1gm 50 ML IV SCH (08:05)
[2021-03-12] MEDS: furosemide 20 MG/2 ML vial IV SCH ×2 (08:05→19:30)
[2021-03-12] MEDS: docusate sod 100mg capsule PO SCH ×2 (08:05→19:30)
[2021-03-12] MEDS: azithromycin/NS 500mg/250ml 250 ML IV SCH (08:05)
[2021-03-12] MEDS: atorvastatin 20mg tablet PO SCH (08:06)
[2021-03-12] MEDS: lactobacillus rhamnosus 10,000 MMU CELLS/CAPSULE PO SCH ×2 (08:06→19:31)
[2021-03-12] MEDS: losartan 50mg tablet PO SCH (08:06)
[2021-03-12] MEDS: nystatin 15 GM powder TP SCH ×3 (08:06→20:16)
[2021-03-12] MEDS: metoprolol succinate 25mg (24-HOUR) SR. Tablet PO SCH (08:06)
[2021-03-12] MEDS: amLODIPine 5mg tablet PO SCH (08:06)
[2021-03-12] MEDS: aspirin 81mg, enteric-coated 1 TAB TABLET.DR PO SCH (08:06)
[2021-03-12] MEDS ORDERED: VANCOMYCIN LEVEL IV ONE (08:30)
[2021-03-12] MEDS: heparin 25,000 UNIT/250ml bag 250 ML IV SCH ×3 (09:20→22:30)
--- NOTE | 2021-03-12 09:46 | NUR ---
Initial: Pt admitted w/ Syncope/acute respiratory failure with CO2 narcosis and acute respiratory acidosis with acute pulmonary embolism per EMR. Pt previously on BiPAP though now on 5L NC per documentation. Currently on Carb controlled diet w/ MM5 recs per CONTRACT CONSULTANT. Pt w/ mostly 100% intake of meals meeting needs. LBM 03/11 receiving routine and PRN bowel care. No nutrition intervention implemented at this time, will continue to monitor. Recs: 1. Continue Carb Controlled/MM5 diet as tolerated per CONTRACT CONSULTANT recs 2. Bowel care per rx 3. Weekly wts Addendum: 03/12/21 at [address] Amended: Links added.
[2021-03-12 10:21] LABS: EOSINOPHILS % (AUTO) 0 % (0-6); LYMPHOCYTES # (AUTO) 0.5 X10'3 (1.1-4.8); LYMPHOCYTES % (AUTO) 5.2 % (21-51); MONOCYTES % (AUTO) 9.8 % (2-12); NEUTROPHILS # (AUTO) 8.5 X10'3 (1.8-7.7)
[2021-03-12 10:23] LABS: BASOPHILS % (AUTO) 0.1 % (0-1); NEUTROPHILS % (AUTO) 84.9 % (42-75); PLATELET COUNT 229 X10'3 (140-440)
[2021-03-12 10:36] LABS: ALANINE AMINOTRANSFERASE 18 U/L (12-78); ALBUMIN 2.7 G/DL (3.4-5.0); ALBUMIN/GLOBULIN RATIO 0.7 (1.1-1.5); ALKALINE PHOSPHATASE 76 IU/L (46-116); ANION GAP 0 (8-16); ASPARTATE AMINO TRANSFERASE 14 U/L (10-37); BILIRUBIN,TOTAL 0.5 MG/DL (0.1-1.0); BLOOD UREA NITROGEN 36 MG/DL (7-18); BUN/CREATININE RATIO 41.9 (6.6-38.0); CALCIUM 8.5 MG/DL (8.5-10.1); CHLORIDE 100 MMOL/L (99-107); CREATININE 0.86 MG/DL (0.40-0.90); GLUCOSE 175 MG/DL (70-104); MAGNESIUM 2.1 MG/DL (1.5-2.4); PHOSPHORUS 3.3 MG/DL (2.3-4.5); POTASSIUM 4.3 MMOL/L (3.5-5.1); SODIUM 138 MMOL/L (135-145); TOTAL PROTEIN 6.5 G/DL (6.4-8.2); VANCOMYCIN,TROUGH 12.8 UG/ML (6.0-14.0); eGFR 63 ML/MIN
[2021-03-12 10:45] LABS: HEMATOCRIT 27.8 % (35.0-45.0); HEMOGLOBIN 8.4 g/dl (12.0-16.0); MEAN CORPUSCULAR HEMOGLOBIN 24.6 PG (27.0-31.0); MEAN CORPUSCULAR VOLUME 81.9 FL (78-98); RED CELL DISTRIBUTION WIDTH 22.4 % (11.5-14.5)
[2021-03-12 11:02] LABS: ANISOCYTOSIS 3+; NUCLEATED RED BLOOD CELLS 3 /100WBC (0-0); PLATELET ESTIMATE NORMAL; TOTAL CELLS COUNTED 100
[2021-03-12 11:03] LABS: HYPOCHROMASIA 1+; POLYCHROMASIA 1+
[2021-03-12 11:04] LABS: TARGET CELLS FEW; TEAR DROP CELLS FEW
[2021-03-12 18:00] VITALS: BP 131/80
[2021-03-12] MEDS: insulin Lispro (HumaLOG) vial - multi-dose SQ SCH ×2 (19:05→21:50)
[2021-03-12] MEDS: polyethylene glycol 3350 17gm powd pack PO SCH (20:16)
[2021-03-12 22:00] VITALS: BP 132/60
[2021-03-13 02:00] VITALS: BP 157/75
[2021-03-13] MEDS: ipratropium/albuterol 3ml nebule NEB SCH ×5 (04:27→19:38)
[2021-03-13 06:00] VITALS: BP 144/59
[2021-03-13 07:57] LABS: BASOPHILS % (AUTO) 0.1 % (0-1); EOSINOPHILS % (AUTO) 0 % (0-6); HEMATOCRIT 27.4 % (35.0-45.0); HEMOGLOBIN 8.2 g/dl (12.0-16.0); LYMPHOCYTES # (AUTO) 0.5 X10'3 (1.1-4.8); LYMPHOCYTES % (AUTO) 5.7 % (21-51); MEAN CORPUSCULAR HEMOGLOBIN 23.5 PG (27.0-31.0); MEAN CORPUSCULAR HGB CONC 29.7 g/dL (33.0-36.5); MEAN CORPUSCULAR VOLUME 79.1 FL (78-98); MEAN PLATELET VOLUME 8.9 FL (7.4-10.4); MONOCYTES # (AUTO) 0.7 X10'3 (0-0.9); NEUTROPHILS # (AUTO) 7.3 X10'3 (1.8-7.7); NEUTROPHILS % (AUTO) 86.2 % (42-75); PLATELET COUNT 196 X10'3 (140-440); RED BLOOD COUNT 3.47 X10'6 (4.20-5.60); RED CELL DISTRIBUTION WIDTH 22.7 % (11.5-14.5); WHITE BLOOD COUNT 8.4 X10'3 (4.5-11.0)
[2021-03-13] MEDS: K and/or MAG REPLACEMENT MC SCH ×2 (08:00→19:17)
[2021-03-13] MEDS: atorvastatin 20mg tablet PO SCH (08:00)
[2021-03-13] MEDS: sodium ferric gluc complex inj 125 MG in normal saline 100ml IV soln 100 ML IV SCH (08:00)
[2021-03-13 08:17] LABS: ALANINE AMINOTRANSFERASE 13 U/L (12-78); ALBUMIN 2.5 G/DL (3.4-5.0); ALBUMIN/GLOBULIN RATIO 0.7 (1.1-1.5); ALKALINE PHOSPHATASE 70 IU/L (46-116); ANION GAP 0 (8-16); ASPARTATE AMINO TRANSFERASE 17 U/L (10-37); BILIRUBIN,TOTAL 0.7 MG/DL (0.1-1.0); BLOOD UREA NITROGEN 30 MG/DL (7-18); BUN/CREATININE RATIO 46.9 (6.6-38.0); CHLORIDE 101 MMOL/L (99-107); CREATININE 0.64 MG/DL (0.40-0.90); GLUCOSE 172 MG/DL (70-104); MAGNESIUM 2.1 MG/DL (1.5-2.4); PHOSPHORUS 3.3 MG/DL (2.3-4.5); POTASSIUM 4.6 MMOL/L (3.5-5.1); SODIUM 139 MMOL/L (135-145); TOTAL PROTEIN 6.3 G/DL (6.4-8.2); eGFR 89 ML/MIN
[2021-03-13] MEDS ORDERED: VANCOmycin 1250MG/NS 250ml Bag 250 ML IV SCH (09:00)
[2021-03-13] MEDS: aspirin 81mg, enteric-coated 1 TAB TABLET.DR PO SCH (09:14)
[2021-03-13] MEDS: docusate sod 100mg capsule PO SCH ×2 (09:14→19:27)
[2021-03-13] MEDS: lactobacillus rhamnosus 10,000 MMU CELLS/CAPSULE PO SCH ×2 (09:14→19:27)
[2021-03-13] MEDS: metoprolol succinate 25mg (24-HOUR) SR. Tablet PO SCH (09:14)
[2021-03-13] MEDS: losartan 50mg tablet PO SCH (09:15)
[2021-03-13 09:16] LABS: ANISOCYTOSIS 3+; HYPOCHROMASIA 2+; NUCLEATED RED BLOOD CELLS 4 /100WBC (0-0); PLATELET ESTIMATE NORMAL; POLYCHROMASIA 1+; TOTAL CELLS COUNTED 100
[2021-03-13] MEDS: amLODIPine 5mg tablet PO SCH (09:16)
[2021-03-13] MEDS: furosemide 20 MG/2 ML vial IV SCH ×2 (09:16→19:27)
[2021-03-13 09:17] LABS: LARGE PLATELETS FEW
[2021-03-13] MEDS: methylPREDNISolone sod succ 125mg/2ml vial IV SCH ×2 (09:17→19:27)
[2021-03-13] MEDS: nystatin 15 GM powder TP SCH ×3 (09:17→19:34)
[2021-03-13] MEDS: pantoprazole 40mg Tablet.DR PO SCH (09:19)
[2021-03-13] MEDS: CefTRIAXone/D5W-Rocephin 1gm 50 ML IV SCH (09:20)
[2021-03-13] MEDS: insulin Lispro (HumaLOG) vial - multi-dose SQ SCH ×2 (09:34→21:31)
[2021-03-13] MEDS: azithromycin/NS 500mg/250ml 250 ML IV SCH (09:57)
[2021-03-13 11:00] VITALS: BP 121/68
[2021-03-13] MEDS: heparin 25,000 UNIT/250ml bag 250 ML IV SCH (11:40)
--- NOTE | 2021-03-13 11:48 | NUR ---
Patient in room PCU 3011. I have received report from CHARANJIT Littlejohn and had the opportunity to ask questions and assume patient care. Patient awake in bed and in no acute distress.
--- NOTE | 2021-03-13 12:23 | NUR ---
Aleksandra Littlejohn RN and saw on the eMAR that the 0800 iron that was supposed to be hung hadn't been administered. I asked Annetta why it hadn't been hung before she left and she stated that because it was only a daily medication. I went to go hang the medication and saw that it had a very short life and to administer immediately, so I called pharmacy and asked how long it would the life was and if I could still hang the iron. Eryn from the pharmacy stated that the medication only has one hour and that it is now past the time for the medication to be hung. I put the medication in the pharmacy outbox and Eryn from pharmacy stated that this is why the RN needs to call down for the medication when they are ready because the medication has a short life and has to be administered immediately. Addendum: 03/13/21 at 1234 by Janna Palma RN LINKED MED NOTE
[2021-03-13] MEDS ORDERED: sodium ferric gluc complex inj 125 MG in normal saline 100ml IV soln 100 ML IV SCH (12:25)
[2021-03-13] MEDS: silver sulfadiazine cream 50gm TP SCH (13:38)
[2021-03-13 15:00] VITALS: BP 122/60
--- NOTE | 2021-03-13 18:25 | NUR ---
Problems reprioritized. Patient report given, questions answered & plan of care reviewed with CHARANJIT Harman. Patient stable at transfer of care.
[2021-03-13] MEDS: polyethylene glycol 3350 17gm powd pack PO SCH (21:34)
[2021-03-13] MEDS: HYDROcodone/acetaminophen 5mg/325mg tablet PO PRN (22:06)
[2021-03-14] MEDS: ipratropium/albuterol 3ml nebule NEB SCH ×7 (00:20→23:47)
[2021-03-14] MEDS: heparin 25,000 UNIT/250ml bag 250 ML IV SCH ×2 (04:03→14:00)
--- NOTE | 2021-03-14 06:39 | NUR ---
Patient in room PCU 3013. I have received report from Kimani and had the opportunity to ask questions and assume patient care.
[2021-03-14 06:51] LABS: MAGNESIUM 1.9 MG/DL (1.5-2.4); PHOSPHORUS 3.3 MG/DL (2.3-4.5)
[2021-03-14 07:00] VITALS: BP 138/57
[2021-03-14] MEDS: K and/or MAG REPLACEMENT MC SCH ×2 (08:00→18:59)
[2021-03-14] MEDS: CefTRIAXone/D5W-Rocephin 1gm 50 ML IV SCH (08:35)
[2021-03-14] MEDS: furosemide 20 MG/2 ML vial IV SCH ×2 (08:35→18:54)
[2021-03-14] MEDS: methylPREDNISolone sod succ/PF 40mg inj. IV SCH ×2 (08:42→18:54)
[2021-03-14] MEDS: docusate sod 100mg capsule PO SCH ×2 (08:45→18:54)
[2021-03-14] MEDS: aspirin 81mg, enteric-coated 1 TAB TABLET.DR PO SCH (08:45)
[2021-03-14] MEDS: lactobacillus rhamnosus 10,000 MMU CELLS/CAPSULE PO SCH ×2 (08:45→18:54)
[2021-03-14] MEDS: metoprolol succinate 25mg (24-HOUR) SR. Tablet PO SCH (08:45)
[2021-03-14] MEDS: losartan 50mg tablet PO SCH (08:45)
[2021-03-14] MEDS: atorvastatin 20mg tablet PO SCH (08:45)
[2021-03-14] MEDS: pantoprazole 40mg Tablet.DR PO SCH (08:45)
[2021-03-14] MEDS: nystatin 15 GM powder TP SCH ×3 (08:48→21:18)
[2021-03-14] MEDS: amLODIPine 5mg tablet PO SCH (08:49)
[2021-03-14] MEDS: insulin Lispro (HumaLOG) vial - multi-dose SQ SCH ×4 (09:08→21:20)
[2021-03-14 11:00] VITALS: BP 119/62
[2021-03-14] MEDS: silver sulfadiazine cream 50gm TP SCH (14:55)
[2021-03-14 15:00] VITALS: BP 112/44
--- NOTE | 2021-03-14 19:40 | NUR ---
Problems reprioritized. Patient report given, questions answered & plan of care reviewed with Kimani.
[2021-03-14] MEDS: HYDROcodone/acetaminophen 5mg/325mg tablet PO PRN (20:05)
[2021-03-14] MEDS: polyethylene glycol 3350 17gm powd pack PO SCH (21:18)
[2021-03-14 22:00] VITALS: BP 132/64
[2021-03-15 02:00] VITALS: BP 99/50
[2021-03-15] MEDS: ipratropium/albuterol 3ml nebule NEB SCH ×2 (02:47→08:14)
[2021-03-15 03:09] LABS: MEAN PLATELET VOLUME 8.7 FL (7.4-10.4)
[2021-03-15 03:11] LABS: BASOPHILS % (AUTO) 0 % (0-1); EOSINOPHILS % (AUTO) 0 % (0-6); LYMPHOCYTES # (AUTO) 0.6 X10'3 (1.1-4.8); LYMPHOCYTES % (AUTO) 5.1 % (21-51); MEAN CORPUSCULAR HGB CONC 30.3 g/dL (33.0-36.5); MONOCYTES # (AUTO) 0.8 X10'3 (0-0.9); MONOCYTES % (AUTO) 6.6 % (2-12); NEUTROPHILS # (AUTO) 11.1 X10'3 (1.8-7.7); NEUTROPHILS % (AUTO) 88.3 % (42-75); PLATELET COUNT 157 X10'3 (140-440); RED BLOOD COUNT 2.08 X10'6 (4.20-5.60); RED CELL DISTRIBUTION WIDTH 22.5 % (11.5-14.5); WHITE BLOOD COUNT 12.5 X10'3 (4.5-11.0)
[2021-03-15 03:18] LABS: HEMATOCRIT 16.4 % (35.0-45.0)
[2021-03-15 03:20] LABS: GLUCOSE 174 MG/DL (70-104); POTASSIUM 4.9 MMOL/L (3.5-5.1); SODIUM 140 MMOL/L (135-145)
[2021-03-15 03:21] LABS: ALANINE AMINOTRANSFERASE 32 U/L (12-78); ALBUMIN 2.1 G/DL (3.4-5.0); ALBUMIN/GLOBULIN RATIO 0.7 (1.1-1.5); ALKALINE PHOSPHATASE 50 IU/L (46-116); ANION GAP 2 (8-16); ASPARTATE AMINO TRANSFERASE 33 U/L (10-37); BILIRUBIN,TOTAL 0.8 MG/DL (0.1-1.0); BLOOD UREA NITROGEN 42 MG/DL (7-18); BUN/CREATININE RATIO 32.6 (6.6-38.0); CHLORIDE 99 MMOL/L (99-107); CREATININE 1.29 MG/DL (0.40-0.90); MAGNESIUM 2.1 MG/DL (1.5-2.4); TOTAL CARBON DIOXIDE 39.1 MMOL/L (24-32); eGFR 40 ML/MIN
[2021-03-15 04:10] LABS: NUCLEATED RED BLOOD CELLS 4 /100WBC (0-0); TOTAL CELLS COUNTED 100
[2021-03-15 04:11] LABS: ANISOCYTOSIS 3+; MICROCYTOSIS 1+; PLATELET ESTIMATE NORMAL; POLYCHROMASIA 1+
[2021-03-15 04:12] LABS: HYPOCHROMASIA 2+
[2021-03-15 04:13] LABS: LARGE PLATELETS FEW; TARGET CELLS FEW
[2021-03-15] MEDS: heparin 25,000 UNIT/250ml bag 250 ML IV SCH (05:02)
[2021-03-15 05:28] LABS: BASOPHILS % (AUTO) 0.1 % (0-1); EOSINOPHILS % (AUTO) 0 % (0-6); LYMPHOCYTES # (AUTO) 0.7 X10'3 (1.1-4.8); LYMPHOCYTES % (AUTO) 5.1 % (21-51); MEAN CORPUSCULAR HEMOGLOBIN 23.9 PG (27.0-31.0); MEAN CORPUSCULAR HGB CONC 29.6 g/dL (33.0-36.5); MEAN CORPUSCULAR VOLUME 80.8 FL (78-98); MEAN PLATELET VOLUME 9.5 FL (7.4-10.4); MONOCYTES # (AUTO) 1.4 X10'3 (0-0.9); NEUTROPHILS # (AUTO) 11.9 X10'3 (1.8-7.7); NEUTROPHILS % (AUTO) 84.8 % (42-75); PLATELET COUNT 146 X10'3 (140-440); RED BLOOD COUNT 2.08 X10'6 (4.20-5.60); RED CELL DISTRIBUTION WIDTH 23.3 % (11.5-14.5)
[2021-03-15 05:31] LABS: HEMATOCRIT 16.8 % (35.0-45.0)
--- NOTE | 2021-03-15 06:22 | NUR ---
Patient in room PCU 3013. I have received report from Kimani and had the opportunity to ask questions and assume patient care.
[2021-03-15] MEDS: furosemide 20 MG/2 ML vial IV SCH ×2 (08:00→08:24)
[2021-03-15] MEDS: K and/or MAG REPLACEMENT MC SCH (08:00)
[2021-03-15] MEDS: losartan 50mg tablet PO SCH (08:00)
[2021-03-15] MEDS: amLODIPine 5mg tablet PO SCH (08:00)
[2021-03-15] MEDS: metoprolol succinate 25mg (24-HOUR) SR. Tablet PO SCH (08:00)
[2021-03-15] MEDS: CefTRIAXone/D5W-Rocephin 1gm 50 ML IV SCH (08:16)
[2021-03-15] MEDS: methylPREDNISolone sod succ/PF 40mg inj. IV SCH (08:19)
[2021-03-15] MEDS: pantoprazole 40mg Tablet.DR PO SCH (08:28)
[2021-03-15] MEDS: atorvastatin 20mg tablet PO SCH (08:29)
[2021-03-15] MEDS: aspirin 81mg, enteric-coated 1 TAB TABLET.DR PO SCH (08:29)
[2021-03-15] MEDS: lactobacillus rhamnosus 10,000 MMU CELLS/CAPSULE PO SCH (08:29)
[2021-03-15] MEDS: silver sulfadiazine cream 50gm TP SCH (08:32)
[2021-03-15] MEDS: nystatin 15 GM powder TP SCH (08:32)
[2021-03-15] MEDS: docusate sod 100mg capsule PO SCH (08:36)
--- NOTE | 2021-03-15 09:47 | NUR ---
No Insulin administered per family's request, stating, she did not eat this morning. Will continue to monitor
[2021-03-15 11:10] VITALS: BP 191/130
[2021-03-15 11:29] VITALS: BP 48/28
--- NOTE | 2021-03-15 12:08 | NUR ---
Street Inspector return from CT scan at 1139 after accompanied another patient for a procedure to continue with a blood transfusion started by charge nurse. Upon checking patient's bp after the first 15 minutes of blood transfusion, her bp at 1140-48/28, she was noted pale, mouth open, using her accessory muscles to breath and breathing noted labored. Blood transfusion immediately stopped and blood bank notified. Patient is DNR. Dr. Strong called to the room and spoke with patient's son outside the room. She was pronounce at 1150 by the provider. Addendum: 03/15/21 at 1915 by Carole Ramirez RN Patient's blood transfusion was completed by Janna charge .
--- NOTE | 2021-03-15 13:10 | NUR ---
Transplant donor notified at 1252. Spoke with Zuly Fuentes. Refeence No: [id number].
--- NOTE | 2021-03-15 13:59 | NUR ---
Provider made aware via [email or web address] messenger that patient's last CMP was on 03/10/21 and request made for a new order. Waiting for recommendation.
--- NOTE | 2021-03-15 14:57 | NUR ---
Speak with Qiana at [facility], states patient's remain will be picked up as soon as they can.
--- NOTE | 2021-03-15 15:20 | NUR ---
Spoke with Robert Escobar Jr. with regards to patient's Rosery that she had on her left hand and her dentures in her mouth. Rosery and dentures (upper and lower) will be sent to the home and will be picked up when he visits the home the next day he stated
--- NOTE | 2021-03-15 19:09 | NUR ---
Ferryboat Pilot was made aware during her lunch break at 1600 that patient's remains picked up.
[2021-03-16] MEDS ORDERED: VANCOMYCIN LEVEL IV ONE (08:30)
== END 2021-03-15 15:56 | DRG 175 ==
LOC: ER 17:01 → ED HOLD 20:23 → PCU 3S 03-09 01:00
PROVIDERS: ADMIT Family Medicine; ATTEND Family Medicine
PROC: 5A09357 Assistance with Respiratory Ventilation, Less than 24 Consecutive Hours, Continuous Positive Airway Pressure (ICD-10-PCS; principal; 2021-03-09)
PROC: B32T1ZZ Computerized Tomography (CT Scan) of Left Pulmonary Artery using Low Osmolar Contrast (ICD-10-PCS; 2021-03-09)
PROC: B3201ZZ Computerized Tomography (CT Scan) of Thoracic Aorta using Low Osmolar Contrast (ICD-10-PCS; 2021-03-09)
PROC: B32S1ZZ Computerized Tomography (CT Scan) of Right Pulmonary Artery using Low Osmolar Contrast (ICD-10-PCS; 2021-03-09)
PROC: 5A09357 Assistance with Respiratory Ventilation, Less than 24 Consecutive Hours, Continuous Positive Airway Pressure (ICD-10-PCS; 2021-03-10)
PROC: 30233N1 Transfusion of Nonautologous Red Blood Cells into Peripheral Vein, Percutaneous Approach (ICD-10-PCS; 2021-03-15)
DX: I26.09 Other pulmonary embolism with acute cor pulmonale (principal); J96.02 Acute respiratory failure with hypercapnia; I50.43 Acute on chronic combined systolic (congestive) and diastolic (congestive) heart failure; N17.0 Acute kidney failure with tubular necrosis; G93.41 Metabolic encephalopathy; J96.01 Acute respiratory failure with hypoxia; I13.0 Hypertensive heart and chronic kidney disease with heart failure and stage 1 through stage 4 chronic kidney disease, or unspecified chronic kidney disease; E87.2 Acidosis; L03.115 Cellulitis of right lower limb; L03.116 Cellulitis of left lower limb; E66.2 Morbid (severe) obesity with alveolar hypoventilation; E78.5 Hyperlipidemia, unspecified; E11.649 Type 2 diabetes mellitus with hypoglycemia without coma; I27.20 Pulmonary hypertension, unspecified; K59.00 Constipation, unspecified; D63.8 Anemia in other chronic diseases classified elsewhere; K57.90 Diverticulosis of intestine, part unspecified, without perforation or abscess without bleeding; E11.22 Type 2 diabetes mellitus with diabetic chronic kidney disease; E86.9 Volume depletion, unspecified; I89.0 Lymphedema, not elsewhere classified; N18.30 Chronic kidney disease, stage 3 unspecified; Z66 Do not resuscitate; Z90.710 Acquired absence of both cervix and uterus; Z88.0 Allergy status to penicillin; Z88.2 Allergy status to sulfonamides; Z79.899 Other long term (current) drug therapy; Z79.82 Long term (current) use of aspirin; Z68.39 Body mass index [BMI] 39.0-39.9, adult
CPT/HCPCS: 36415; 36430; 36600; 70450; 71045; 71275; 80053; 80061; 80202; 81001; 82272; 82550; 82728; 82803; 82948; 83036; 83540; 83550; 83605; 83690; 83735; 83880; 84100; 84145; 84443; 84484; 85007; 85008; 85018; 85025; 85027; 85379; 85610; 85730; 86885; 86900; 86901; 86920; 87040; 87081; 87635; 92508; 92616; 93005; 93306; 93970; 94640; 94660; 94760; 94799; 96365; 96368; 96375; 96376; 97110; 97161; 97530; 99285; C9803; G0378; J0456; J0696; J1100; J1644; J1815; J1940; J2916; J2920; J2930; J3370; J3490; J7030; J7042; P9016; Q9967